=== PATIENT | female | born 1980 | race Hispanic/Latino ===

== ENCOUNTER 2017-09-27 13:29 | Outpatient (CLI) | payer BC ==
[2017-09-27 13:48] LABS: Hematocrit 36.6 % (30.3-42.9); Hemoglobin 12.3 gm/dl (10.1-14.3); Mean Corpuscular HGB Conc 34 % (30-34); Mean Corpuscular Hemoglobin 29 pg (28-32); Mean Corpuscular Volume 86 fl (79-97); Platelet Count 276 K/mm3 (140-440); Red Blood Count 4.25 M/mm3 (3.65-5.03); Red Cell Distribution Width 15.4 % (13.2-15.2)
[2017-09-27 14:07] LABS: Alanine Aminotransferase 13 units/L (7-56); Albumin 3.9 g/dL (3.9-5); BUN/Creatinine Ratio 22; Blood Urea Nitrogen 13 mg/dL (7-17); Calcium 8.7 mg/dL (8.4-10.2); Hemolysis Index 0
[2017-09-27 14:20] LABS: Free T4 (Free Thyroxine) 1.08 ng/dL (0.76-1.46)
[2017-09-27 14:37] LABS: Erythrocyte Sedimentation Rate 19 mm/Hr (0-20)
== END 2017-09-27 13:30 | disposition home or self-care (01) ==
LOC: LAB 13:29
PROVIDERS: ATTEND Specialist
DX: G70.00 Myasthenia gravis without (acute) exacerbation (principal)
CPT/HCPCS: 36415; 80053; 84439; 84443; 85027; 85652; 86038

== ENCOUNTER 2017-10-12 12:54 | Outpatient (CLI) | payer BC ==
--- NOTE | 2017-10-12 15:20 | Magnetic Resonance Report ---
MRI CHEST WITHOUT CONTRAST: 10/12/17 CLINICAL: Myasthenia gravis TECHNIQUE: Axial in phase and out of phase T1, axial T2 fat-sat, coronal T1 and T2 and coronal T1 fat sat LAVA sequences without contrast on a 1.5 Mary magnet. FINDINGS: Minimal residual thymus and no thymic mass. No mediastinal mass or lymphadenopathy. Normal heart, aorta and pulmonary vasculature. Normal thyroid. No axillary or supraclavicular lymphadenopathy. The lungs are normal. No airspace disease or pleural effusion. The upper abdomen is normal. The liver is normal size with normal overall signal. Irregular lesion of the lateral segment of the left lobe liver measures 1.5 x 1.0 cm and is hypointense on T1 and mildly hyperintense on T2. The lesion demonstrates no significant change on opposed phase imaging. The gallbladder and bile ducts are normal. The pancreas is normal. The kidneys are normal size with normal nondilated renal collecting systems and ureters. A left upper pole renal cyst measures 1.4 cm and a left lower pole renal cyst measures 9 mm. Normal adrenal glands. The aorta and inferior vena cava are normal. Bones and soft tissues are normal. IMPRESSION: 1. Minimal residual thymus and no evidence of thymoma. 2. A probably benign left hepatic lesion. I suspect this is a small irregular benign hepatic cyst. 3. Benign left renal cysts.
== END 2017-10-12 12:55 | disposition home or self-care (01) ==
LOC: SPVIMAG 12:54
PROVIDERS: ATTEND Specialist
DX: G70.00 Myasthenia gravis without (acute) exacerbation (principal); N28.1 Cyst of kidney, acquired
CPT/HCPCS: 71550